=== PATIENT | female | born 1960 | race African-American/Black ===

== ENCOUNTER 2016-12-27 13:31 | Inpatient (IN) | payer OTHER ==
--- NOTE | ~2016-12-27 | CN ---
Consultation Report [facility] [address] [place]. [address] NAME: MAHAMED KIRKLAND : 64 STATUS : ADM Jerry PAT#: [id number] AGE: 56 ADM/REG DATE : 12/27/16 MR#: [id number] REPORT SERV DATE: 12/28/16 DICTATED BY: ENOCH LIN DATE: 12/28/16 REPORT STATUS : Draft TRANSCRIBED BY: MODL DATE: 12/28/16 DATE OF CONSULTATION: 12/28/2016 REASON FOR CONSULTATION: Elevated troponin. 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 with unclear goals of care at this point in time, who was brought in to [facility] yesterday with a seizure as her main complaint. The patient, as per records, had no interest in her care or answering questions, and was unaware of any of her medications. She did not respond to any questioning when the ED staff asked her for more information. Although family was present during the initial encounter per review of Dr. Wan's history and physical note, no family is currently available for me to speak with in person or on the phone. [facility] did indicate to me directly that she was under their care as recently as last month and this was stopped for unclear reasons. Unfortunately, no further history is presently available, however, I have been asked to see her for an incidentally found elevated troponin, which was checked for unclear reasons. ALLERGIES: UNABLE TO OBTAIN. FAMILY HISTORY: Unable to obtain secondary to patient not arousable (recently received benzodiazepine). SOCIAL HISTORY: Unable to obtain. REVIEW OF SYSTEMS: Unable to obtain secondary to patient's current mental status. HOME MEDICATIONS: (Patient does not know what medications she was taking, if any, however, list from EMR shows below medicines) 1. [place]. 2. Symax. 3. Compazine. 4. Zantac. 5. Senna. 6. Trazodone. PHYSICAL EXAMINATION: VITAL SIGNS: Blood pressure 163/76, pulse 77, temperature 99.7. GENERAL: Not arousable/sedated. Occasionally will open eyes with vigorous shaking, but does not gaze in my direction or acknowledge verbal calling. NEURO: As above, no obvious focal deficits, however. RESPIRATORY: Normal work of breathing. Clear to auscultation anteriorly. Consultation Report [place] [address] [place]. [address] NAME: MAHAMED KIRKLAND : 64 STATUS : ADM Jerry PAT#: [id number] AGE: 56 ADM/REG DATE : 12/27/16 MR#: [id number] REPORT SERV DATE: 12/28/16 DICTATED BY: ENOCH LIN DATE: 12/28/16 REPORT STATUS : Draft TRANSCRIBED BY: WILLIAM DATE: 12/28/16 CARDIAC: Regular rate and rhythm/tachycardiac. Normal S1, S2. ABDOMEN: Soft, nontender, nondistended. No rebound or guarding. EXTREMITIES: Cool and dry. No edema. SKIN: No obvious active rash. PERTINENT TEST FINDING: Potassium 3.5, creatinine 0.91, troponin 1.74, now 3.67. White blood cell count 9 and hemoglobin 12.3. EKG with sinus rhythm, probable anteroseptal infarct, otherwise no ischemic changes. IMPRESSION AND PLAN: Ms Kirkland is a 56-year-old woman with a history that is poorly documented of seizure disorder, not presently on medicines. Central nervous system lesions of unclear etiology status post shunting and temporal craniotomy at some point in the past and most recently under the care of [facility] as recently as last month with interruption for unclear reasons, who was brought in after having a seizure yesterday, found to have an incidental elevated troponin. RECOMMENDATIONS: I have the following recommendations by problem below: 1. Seizure disorder-per Neuro. 2. Goals of care/hospice?-this needs to be clarified. The patient is currently sedated/nonverbal and has no family that is present in person or reachable by phone at this point in time. Therefore, the upper caser has already been asked to help with her case and in clarifying her goals of care. This will be important in determining her forthcoming plan from a cardiac standpoint, if any. 3. Troponinemia-I am unsure as to the significance of this incidental positive blood test in the setting of a patient who had a seizure yesterday. As she is hemodynamically stable, for the time being, I will medically manage her with cardiac heparin drip if okay with Neurology, otherwise aspirin, statin, and beta-liliya. Further recommendations will follow, clarification of her goals of care and/or wishes if she becomes more lucid. I will possibly be helpful to also check an echocardiogram at this time. ANASTASIIA/WILLIAM Enoch Lin MD / [id number] CC: Sinan Velasquez Jr, MD
--- NOTE | ~2016-12-27 | CN ---
Consultation Report [facility] [address] [place]. [address] NAME: MAHAMED KIRKLAND : 64 STATUS : ADM Jerry PAT#: [id number] AGE: 56 ADM/REG DATE : 12/27/16 MR#: [id number] REPORT SERV DATE: 12/28/16 DICTATED BY: MEI CRAWFORD DATE: 12/28/16 REPORT STATUS : Draft TRANSCRIBED BY: MODL DATE: 12/28/16 NEUROLOGY CONSULTATION DATE OF CONSULTATION: 12/28/2016 REASON FOR CONSULTATION: Status epilepticus. HOSPITALIST: Dr. Sinan Velasquez Jr. 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 It is unknown whether these lesions are malignant; however, it is documented in the medical records that the patient has had a followup visit with [facility]. The patient is status post craniotomy and shunt placement. The patient had a status epilepticus in 2014. She was placed on IV steroids, intubated and housed in the Intensive Care Unit. After she was given IV steroids along with Keppra, her condition seemed to improve. Yesterday evening, the patient was brought to the emergency department at [facility]. Her mother was at her bedside, but was unable to provide much information. No other family member was available by phone. The patient is supposedly on Keppra, but it was not listed on her home medication list. It is also noted that she is with [facility], but it is unknown as to why. The patient had a seizure earlier yesterday, and prior to that her last seizure was approximately six months ago. Her seizure was reportedly moderate in severity with resultant expressive aphasia. According to the chart, it was documented that upon arrival she could follow some commands, was trying to open her mouth and move directionally, although she did not have a vocal response. PAST MEDICAL HISTORY: (Which is obtained from the chart) temporal lobe "lesions," irritable bowel syndrome, GERD, and left occipital stroke. PAST SURGICAL HISTORY: Status post craniotomy and status post shunt placement. HOME MEDICATION LIST: [place] 10/325 mg at bedtime, [place] 5/325 mg one in the morning, hyoscyamine 0.125 mg at bedtime, Compazine 10 mg q.6 hours p.r.n. nausea, Zantac 150 mg daily, Senokot tablet, and trazodone 50 mg at bedtime. ALLERGIES: PENICILLIN AND ADVIL. SOCIAL HISTORY: Unobtainable from the patient. FAMILY HISTORY: Unobtainable from the patient. REVIEW OF SYSTEMS: Unobtainable from the patient. PHYSICAL EXAMINATION: Consultation Report [address] [place]. [address] NAME: MAHAMED KIRKLAND : 64 STATUS : ADM Jerry PAT#: [id number] AGE: 56 ADM/REG DATE : 12/27/16 MR#: [id number] REPORT SERV DATE: 12/28/16 DICTATED BY: MEI CRAWFORD DATE: 12/28/16 REPORT STATUS : Draft TRANSCRIBED BY: WILLIAM DATE: 12/28/16 GENERAL: The patient is a 56-year-old female, who stands 5 feet 1 inch tall and weighs 190 pounds. VITAL SIGNS: She is slightly febrile with a temperature of 99.7 degrees, heart rate 70, respiratory rate 24, O2 saturations on room air 96%, and blood pressure is 163/76. NEUROLOGIC: The patient is currently having seizure activity. It is noted predominantly in the lower extremities more so on the left than the right. She is unresponsive, she will only withdraw to painful stimuli (nail bed pressure). There is no posturing just withdrawal from the painful stimuli. Pupils are 3 mm, sluggish to react. Positive dolls eye response. No nystagmus. She does have a cough and gag reflex. She is nonverbal, not following commands. She is moving all four extremities spontaneously. No tonic-clonic movement, more myoclonic type movement predominantly in the lower extremities more so on the left than the right. Upper DTRs 1+ bilaterally. Lower DTRs 2+ bilaterally. Upgoing toes bilaterally. NECK: No carotid bruits, JVD, or thyromegaly. CHEST: Few rhonchi, diminished in the bases. CARDIAC: Regular rate and rhythm. LABORATORY DATA: CBC is normal. BMP shows a sodium of 130, potassium 3.5, glucose 177, magnesium is low at 1.5. Troponins are elevated initially. Initial troponin was 1.74, 3.67, and now 7.65. Urinalysis is negative for UTI. CT of the brain shows a left craniotomy with encephalomalacia and a right shunt EEG will be done. ASSESSMENT/PLAN: 1. Status epilepticus. The patient's Keppra will be increased to 1500 mg dose now and remain on 1500 mg q.12 hours. The patient will be given Decadron 10 mg IV stat and then will be placed on 4 mg IV q.8 hours. An EEG will be done now. The patient will be placed on seizure precautions and transferred to the [facility]. The patient will also undergo an MRI of the brain with and without contrast today. 2. Elevated troponins. Questionable non-ST elevated myocardial infarction. The patient could also have rhabdomyolysis from persistent seizure activity. A CPK will be checked. 3. History of brain tumor (type unknown), right shunt placement. 4. Palliative care will be consulted. Thank you again for including us in consultation. GABE/WILLIAM Mei Crawford [facility]- / [id number] CC: Sinan Velasquez Jr, MD
--- NOTE | ~2016-12-27 | EEG ---
Electroencephalogram [facility] [address] [place]. [address] NAME: MAHAMED KIRKLAND : 64 STATUS : ADM IN PAT#: [id number] AGE: 56 ADM/REG DATE : 12/28/16 MR#: [id number] REPORT SERV DATE: 12/28/16 DICTATED BY: KINDRA WAYNE DATE: 12/28/16 REPORT STATUS : Draft TRANSCRIBED BY: MODL DATE: 12/28/16 ELECTROENCEPHALOGRAPHY REPORT INTERPRETING PHYSICIAN: Dr. Kindra Wayne. EEG NUMBER: [id number]. REASON FOR EEG: Recurrent seizures, history of brain mets, shunt status post craniotomy. DATE OF EE12/28/2016. TECHNIQUE: 23 surface electrodes, 10-20 international placement was used. Video monitoring was utilized. The patient was noted to be awake, drowsy, asleep, and restless. Prior to the EEG, the patient was noted to have tonic-colonic seizure. This silent feature of this recording is marked asymmetry of cerebral activity with presence of underlying depression and slowing of cerebral activity noted over the left hemisphere. The swallowing was involving frontotemporal, parietal, and occipital regions. The activity of the right hemisphere could be described as poorly organized, moderate voltage of 7 cycles per second located in the posterior head regions. In addition, large amount of fast activity was seen in the anterior head regions of the right hemisphere. During the sleep portion of the recording, sleep spindle like activity was seen on the right. Photic stimulation was performed. The patient became restless. Large amount of muscle artifact was seen. No paroxysmal or epileptiform activity was seen during this study. The patient's early intervention specialist showed sinus rhythm, rate of approximately 82 to 86 beats per minute. IMPRESSION: MARKEDLY ABNORMAL EEG CHARACTERIZED BY PRESENCE OF SIGNIFICANT ASYMMETRY OF CEREBRAL ACTIVITY WITH DEPRESSION AND SLOWING INVOLVING THE ENTIRE LEFT HEMISPHERE. INCREASE OF FAST ACTIVITY WAS SEEN IN RIGHT FRONTOTEMPORAL PARIETAL REGIONS. NO ACTIVE BOWEL PAROXYSMAL ACTIVITY WAS NOTED DURING THIS STUDY. THE PATIENT WAS RESTLESS AND UNCOOPERATIVE. THIS EEG SUGGESTS PRESENCE OF PHYSIOLOGICAL DISTURBANCE INVOLVING THE FUNCTION OF BOTH HEMISPHERES WITH UNDERLYING DEPRESSION AND SLOWING ON THE LEFT, MAY SUGGEST PRESENCE OF AN OLD INSULT. NO EVIDENCE OF PAROXYSMAL EPILEPTIFORM ACTIVITY WAS SEEN. HOWEVER, THIS EEG MAY REPRESENT A POSTICTAL STATE. MENTIONED ABOVE, THE PATIENT WAS NOTED TO HAVE CLINICAL SEIZURE PRIOR TO STARTING THE EEG. CLINICAL CORRELATION IS RECOMMENDED. SERGIO/WILLIAM Kindra Wayne MD / [id number] CC: Electroencephalogram [address] [place] [address] NAME: MAHAMED KIRKLAND LEONIDAS : 64 STATUS : ADM IN PAT#: [id number] AGE: 56 ADM/REG DATE : 12/28/16 MR#: [id number] REPORT SERV DATE: 12/28/16 DICTATED BY: KINDRA WAYNE DATE: 12/28/16 REPORT STATUS : Draft TRANSCRIBED BY: WILLIAM DATE: 12/28/16 Sinan Velasquez Jr, MD
--- NOTE | ~2016-12-27 | HP ---
History And Physical [facility] [id number] [place]. [address] NAME: MAHAMED KIRKLAND : 64 STATUS : ADM Jerry PAT#: [id number] AGE: 56 ADM/REG DATE : 12/27/16 MR#: [id number] REPORT SERV DATE: 12/27/16 DICTATED BY: GHASSAN WAN DATE: 12/27/16 REPORT STATUS : Draft TRANSCRIBED BY: MODL DATE: 12/27/16 DATE OF ADMISSION: 12/27/2016 CHIEF COMPLAINT: Seizures today and not quite back to baseline, and postictal. 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 Family member, mother who is at bedside, does not provide much information. Aside that, the patient had seizure today. Does not know any medications and appears fairly disinterested about answering questions, as she did not even respond questioning to ER staff when asked. The patient is currently unable to discuss due to her state. Does follow small commands with trying to open mouth and moving directional, but does not have vocal response. Her family does report that she was on hospice care with [facility], but does not report why, medications, PCP, neurologist, or able to give any details of her medical history. The patient was reported to be on Keppra, but on arrival, is not on MAR for Keppra. Seizure episode happened earlier today. The last episode appears to be greater than 6 months. Considered moderate in severity with resultant expressive aphasia. No recent nausea or vomiting, was eating well. No reported pain or discomfort in bowel or bladder. There are no worsening or relieving symptoms. Symptoms only for dysphagia and aphasia. Her additional review of systems, unobtainable secondary to mental status. PAST MEDICAL HISTORY: Obtained from the electronic records, temporal area craniotomy and seizure disorder. SURGICAL HISTORY: Noted for craniotomy. SOCIAL HISTORY: Mother lives with the patient, but unclear of additional family dynamics, and reported to have discharged to Hospice. FAMILY HISTORY: No additional seizure symptoms reported. PHYSICAL EXAMINATION: VITAL SIGNS: The patient's blood pressure 137/78, temperature 98.5, pulse of 100, respirations 23, O2 sats 97%. GENERAL: She is postictal, appears weak, does have craniotomy changes on skull with mild abrasion over the left eyebrow. HEENT: Eyes, no scleral icterus, symmetrical response. Does have poor dentition, but no vocal responses. Nares patent. RESPIRATORY: Clear to auscultation. No wheezes. CV: Regular rate. No rubs. GI: Soft, nontender. : Deferred. MUSCULOSKELETAL: Spontaneously moves all extremities, but does have deformities and bone History And Physical [address] [address] NAME: MAHAMED KIRKLAND : 64 STATUS : ADM Jerry PAT#: [id number] AGE: 56 ADM/REG DATE : 12/27/16 MR#: [id number] REPORT SERV DATE: 12/27/16 DICTATED BY: GHASSAN WAN DATE: 12/27/16 REPORT STATUS : Draft TRANSCRIBED BY: WILLIAM DATE: 12/27/16 structures in hands. SKIN: Warm and dry. HEME: No bleeding. Does have bruise at left eyebrow. NEURO: Awake, responds, interactive slightly and expressive aphasia. Does try to open mouth on command, but difficult spontaneous moving. Additional neuro exam difficult to obtain secondary to postictal-type state. PSYCH: Unable to assess. IMAGING AND LABS: CBC: H and H 11.7and 35.2, WBC of 6, platelets 237. UDS negative. Urinalysis negative. Portable chest: Shallow inspiration, no cardiopulmonary. Labs: Sodium 129, potassium 3.5, chloride 93, bicarb 24, BUN and creatinine 10 and 0.91, glucose 161, calcium 8.3. Tylenol salicylate and alcohol negative. Brain without contrast: No acute infarct or hemorrhage, status post left craniotomy with large region of encephalomalacia in the left temporal lobe, right shunt that crosses, ventricles remain mildly dilated and unchanged. ASSESSMENT/PLAN: 1. Seizure. 2. Hyponatremia. 3. History of craniotomy, with right shunt. 4. Expressive aphasia. 5. Recent hospice, questionable. PLAN: 1. For seizure, [place] in ED. She is not currently on medications, but was reported to have been on medications in the past. Prior history of stent and also prior history of status and ICU stay. We will need to closely monitor with seizure protocol. Neurology consult. Restart Keppra at this time until evaluated by Neurology and also benzodiazepines IV until full evaluation will be completed by Speech Therapy and if passes with bedside swallow, back to baseline. 2. Hyponatremia. Check osmolyte. Gentle IV fluids. Unclear etiology, but possible cause of decompensated seizure. 3. History of craniotomy, right shunt. Unchanged per CT. Reported secondary to brain cancer history, but no documentation of type or differentiation. 4. Expressive aphasia. History of similar episode requiring IV steroids in the past. We will initiate pulse-dose steroids as prior until evaluated by Neurology. 5. Recent hospice. We will need further clarification. Family member at bedside, very vague on details. We will need to have Case Management and Social Work evaluation. MERRYN/WILLIAM Ghassan Wan MD / [id number] History And Physical [address] [address] NAME: MAHAMED KIRKLAND LEONIDAS : 64 STATUS : ADM Jerry PAT#: [id number] AGE: 56 ADM/REG DATE : 12/27/16 MR#: [id number] REPORT SERV DATE: 12/27/16 DICTATED BY: GHASSAN WAN DATE: 12/27/16 REPORT STATUS : Draft TRANSCRIBED BY: MODMiley DATE: 12/27/16 CC: Sinan Velasquez Jr, MD
--- NOTE | ~2016-12-27 | CN ---
Consultation Report [facility] [address] [place]. [address] NAME: MAHAMED KIRKLAND : 64 STATUS : ADM IN PAT#: [id number] AGE: 56 ADM/REG DATE : 12/28/16 MR#: [id number] REPORT SERV DATE: 12/28/16 DICTATED BY: BREANNE LAWS DATE: 12/28/16 REPORT STATUS : Draft TRANSCRIBED BY: MODL DATE: 12/28/16 PALLIATIVE CARE CONSULTATION DATE OF CONSULTATION: 12/28/2016 Allergies are not specified as far as I can tell. HISTORY OF PRESENT ILLNESS: The patient was admitted on 12/27/2016 with seizures which she has evidently had intermittently for a number of years. She has had altered mental status and is postictal. In addition, it appears that she has an expressive aphasia of uncertain duration and severity. From what I can tell from the records several years ago after her craniotomy for metastatic breast cancer, she had a prolonged intubation and long-term support in ICU where she gradually recovered her speech. This 56-year-old lady presents now with evidence of an Ommaya reservoir for metastatic breast cancer treatment and a history of some form of hospice involvement in her care. Question as to whether they were discharged or revoked. We are asked to see her with regard to the clarifying goals of care, her overall status, and getting a better handle on exactly what her care needs are. PAST MEDICAL HISTORY: Includes expressive aphasia, postop craniotomy on the left with evidence of encephalomalacia on scan. She has a right-sided shunt. She is status post episodic seizures. SOCIAL HISTORY: Lives with her mother. Does not appear to be a substance abuser, smoker, or drinker. REVIEW OF SYSTEMS: Unable to be obtained. SIGNIFICANT LABORATORY DATA: Include a sodium of 127, K of 3.2, chloride 95, CO2 of 24, blood sugar is normal. Her magnesium is 1.5. Phosphorus is 2. Albumin 3.6. Her CPK is approximately 6000. Her CBC is unimpressive. Scans do not show any evidence of obvious hemorrhage. Evidently, an EEG was performed today the results of which are not available. PHYSICAL EXAMINATION: GENERAL: Today shows a stuporous female who has basically nonverbal. She is a little bit of lip smacking and some spontaneous shaking. There is no clear overt seizure activity noted. VITAL SIGNS: Her blood pressure is 124/60. Her temperature is 98.8 post seizure in the CDU. Pulse is 80 and regular, sinus mechanism. Respiratory rate 18 to 20, not labored. HEENT: Head is normocephalic with evidence of a previous left craniotomy and evidence of a Consultation Report [place] [address] [facility] [address] NAME: MAHAMED KIRKLAND : 64 STATUS : ADM IN PAT#: [id number] AGE: 56 ADM/REG DATE : 12/28/16 MR#: [id number] REPORT SERV DATE: 12/28/16 DICTATED BY: BREANNE LAWS DATE: 12/28/16 REPORT STATUS : Draft TRANSCRIBED BY: WILLIAM DATE: 12/28/16 right Ommaya reservoir. Her pupils are sluggish, but symmetrical at 5 mm. I did not perform doll's eyes, corneal reflexes, or other detailed neurologic exam. Please see the neurological consult for details of these aspects of the exam. Her trachea is midline. Air exchange is adequate. Dentition shows partial dentition with a coated tongue. LUNGS: She has clear upper airway congested sounds, but is exchanging air reasonably well. Her lungs show scattered rhonchi without wheezes or signs of consolidation. CHEST: Shows a left mastectomy which has been healed. HEART: Shows a regular rate and rhythm. S1 and S2 without murmurs, gallops, or extra heart sounds. Pulses 2+ upper and lower. ABDOMEN: Somewhat obese, protuberant, nontender without rebound, guarding, or tenderness. EXTREMITIES: Without clubbing or cyanosis. The overall tone appears to be somewhat decreased at this time. IMPRESSION/PLAN/DISCUSSION: This is a 56-year-old lady with a history of metastatic breast cancer evidently in hospice for some period of time. Their current status is unknown. Her current treatment regimen is unclear. She presents now with seizures which she has actually had episodically in the past, which will be addressed by Neurology. Once her overall medical situation stabilizes, hopefully, we will be able to clarify the situation a little bit better. A total of 40 minutes for this examination. GRACY/WILLAIM Breanne Laws M.D. / [id number] CC: Sinan Velasquez Jr, MD UNKNOWN
--- NOTE | ~2016-12-27 | DS ---
Discharge Summary [place] [id number] [facility] [place]. [address] NAME: MAHAMED KIRKLAND : 64 STATUS : ADM IN PAT#: [id number] AGE: 56 ADM/REG DATE : 12/28/16 MR#: [id number] REPORT SERV DATE: 01/01/17 DICTATED BY: Rosalba CHOWDHURY DATE: 01/01/17 REPORT STATUS : Draft TRANSCRIBED BY: MODL DATE: 01/01/17 ADMISSION DATE: 12/28/2016 DISCHARGE DATE: 01/01/2017 DIAGNOSES AT DISCHARGE: 1. Status epilepticus, resolved. 2. Seizure disorder. 3. Widely metastatic breast cancer. 4. Non-ST elevation myocardial infarction. 5. Metabolic encephalopathy, resolved. 6. Prior craniotomy. 7. Prior KICK BOXER shunt placement. CONSULTS: [facility]. PROCEDURES: None. BRIEF SUMMARY: A 56-year-old female patient was admitted with breakthrough seizure activity and was admitted to intermediate care and loaded on IV Keppra. The patient had an MRI of the brain that showed multiple foci of metastatic disease given her prior history of craniotomy for a single metastatic focus of breast cancer. Based on these followup images, she was started on Decadron and responded very well clinically. I met with the patient's family and they agreed to transition to [facility]. She had been a [facility] patient for quite a while, but because of a stable clinical course, they dismissed hospice and she had been doing well under the care of her daughter. However, based on the new MRI findings and her new seizure activity, they were agreeable to rejoin the [facility] for ongoing care. On 01/01/2017, the patient was stable to be discharged home with her daughter in the care of [facility]. She will continue her home medicines with the addition of Keppra 1500 mg b.i.d. p.o. and Decadron 4 mg three times a day p.o. Further recommendations for treatment pending ongoing evaluation and management by [facility]. [facility] Rosalba Chowdhury M.D. / [id number] CC: Bree Fong M.D.
[2016-12-27 12:23] LABS: A/G RATIO 0.9 (0.7-1.9); ALBUMIN 3.5 G/DL (3.5-5.0); ALKALINE PHOSPHATASE 117 U/L (45-117); BUN (BLOOD UREA NITROGEN) 10 MG/DL (6-23); CALCIUM, SERUM 8.3 MG/DL (8.5-10.4); CHLORIDE, SERUM 93 MMOL/L (96-112); CO2 (CARBON DIOXIDE) 24 MMOL/L (24-34); CREATININE 0.92 MG/DL (0.55-1.02); GFR AFRICAN AMERICAN 82 ML/MIN (>=60); GFR NON AFRICAN AMERICAN 71 ML/MIN (>=60); GLOBULIN 4.1 G/DL (2.5-4.1); GLUCOSE, SERUM 161 MG/DL (60-99); POTASSIUM, SERUM 3.5 MMOL/L (3.5-5.3); SGOT(AST) 22 U/L (5-40); SGPT(ALT) 19 U/L (5-65); SODIUM, SERUM 129 MMOL/L (135-148); TOTAL BILIRUBIN 0.6 MG/DL (0-1.2); TOTAL PROTEIN 7.6 G/DL (6.0-8.5)
[2016-12-27 12:24] LABS: ACETAMINOPHEN LEVEL (TYLENOL) < 2.0 MCG/ML (10.0-20.0); ALCOHOL < 10 MG/DL (0); SALICYLATE < 1.7 MG/DL (-)
[~2016-12-27 13:31] MED LIST: *UNABLE2; ASA5GR PO; KEPPRA500 PO; METHOC500B PO; NEUR100 PO; NORCO1 TA1 PO; P10 PO; VENTOLIN HFA INH; ZANAFLEX2 MG PO
[2016-12-27 13:59] LABS: ASCORBIC ACID (UR NOT ORDER) NEG (NEG); BILIRUBIN, URINE NEGATIVE (NEG); ER URINALYSIS TAT 0 Hrs 07 Mins; KETONE, URINE NEGATIVE (NEG); LEUKOCYTE ESTERASE(NOT OR NEG (NEG); NITRITE (URINE) NEG (NEG); WBC (NOT ORDERED) (RFLEX) < 1 (0-5)
[2016-12-27 14:11] LABS: AMPHETAMINES (NOT ORD) NEG (NEG); BARBITURATES (NOT ORDERED NEG (NEG); BENZODIAZEPINES (NOT ORD) NEG (NEG); CANNABINOIDS (THC) NEG (NEG); COCAINE (NOT ORDERED) NEG (NEG); OPIATES NEG (NEG); PHENCYCLIDINE(PCP) NEG (NEG); TRICYCLICS NEG (NEG)
[2016-12-27 14:15] LABS: BASOPHILS 0.2 %; BASOPHILS ABSOLUTE 0.01 10/3/uL (0.0-0.16); EOSINOPHILS 0.2 %; EOSINOPHILS ABSOLUTE 0.01 10/3/uL (0.0-0.53); HEMATOCRIT 35.2 % (36.0-48.0); HEMOGLOBIN 11.7 g/dL (12.0-16.0); IMMATURE GRANULOCYTES 0.2 %; IMMATURE GRANULOCYTES ABSOLUTE 0.01 10/3/uL (0.0-0.11); LYMPHOCYTES 13.7 %; LYMPHOCYTES ABSOLUTE 0.83 10/3/uL (0.67-4.30); MEAN CORPUS HGB CONC 33.2 g/dL (32.0-36.0); MEAN CORPUSCULAR HEMOGLOB 27.6 pg (26.0-34.0); MONOCYTES 7.3 %; MONOCYTES ABSOLUTE 0.44 10/3/uL (0.21-1.20); NEUTROPHILS 78.4 %; NEUTROPHILS ABSOLUTE 4.74 10/3/uL (2.02-8.40); PLATELET COUNT 237 10/3/uL (150-400); RBC DISTRIBUTION WIDTH 12.7 % (12.0-16.0); RED CELL COUNT 4.24 10/6/uL (4.0-5.6)
[2016-12-27 14:18] LABS: ER CBC TAT 0 Hrs 06 MinsNMP; MANUAL DIFF NO %
[2016-12-27] MEDS ORDERED: TRAZ50 PO (15:04)
[2016-12-27] MEDS ORDERED: SYMAX-SL0.125 MG SL (15:04)
[2016-12-27] MEDS ORDERED: SENTAB PO (15:05)
[2016-12-27] MEDS ORDERED: ZANTAC 150 PO (15:07)
[2016-12-27] MEDS ORDERED: NORCO1 TA1 PO (15:08)
[2016-12-27] MEDS ORDERED: NORCO1 TAB PO (15:08)
[2016-12-27] MEDS ORDERED: COMP10B PO (15:09)
[2016-12-27 20:37] LABS: BUN (BLOOD UREA NITROGEN) 8 MG/DL (6-23); CALCIUM, SERUM 8.6 MG/DL (8.5-10.4); CHLORIDE, SERUM 93 MMOL/L (96-112); CO2 (CARBON DIOXIDE) 25 MMOL/L (24-34); CREATININE 0.83 MG/DL (0.55-1.02); GFR AFRICAN AMERICAN 93 ML/MIN (>=60); GFR NON AFRICAN AMERICAN 80 ML/MIN (>=60); GLUCOSE, SERUM 132 MG/DL (60-99); POTASSIUM, SERUM 3.5 MMOL/L (3.5-5.3); SODIUM, SERUM 129 MMOL/L (135-148)
[2016-12-27 20:38] LABS: TROPONIN I 1.74 NG/ML (<0.05)
[2016-12-28 02:18] LABS: A/G RATIO 0.8 (0.7-1.9); ALBUMIN 3.6 G/DL (3.5-5.0); ALKALINE PHOSPHATASE 127 U/L (45-117); BUN (BLOOD UREA NITROGEN) 8 MG/DL (6-23); CALCIUM, SERUM 8.5 MG/DL (8.5-10.4); CHLORIDE, SERUM 92 MMOL/L (96-112); CO2 (CARBON DIOXIDE) 25 MMOL/L (24-34); CREATININE 0.91 MG/DL (0.55-1.02); GFR AFRICAN AMERICAN 83 ML/MIN (>=60); GFR NON AFRICAN AMERICAN 72 ML/MIN (>=60); GLOBULIN 4.6 G/DL (2.5-4.1); POTASSIUM, SERUM 3.5 MMOL/L (3.5-5.3); SGOT(AST) 78 U/L (5-40); SGPT(ALT) 32 U/L (5-65); SODIUM, SERUM 130 MMOL/L (135-148); TOTAL BILIRUBIN 0.6 MG/DL (0-1.2); TOTAL PROTEIN 8.2 G/DL (6.0-8.5)
[2016-12-28 02:19] LABS: GLUCOSE, SERUM 177 MG/DL (60-99); TROPONIN I 3.67 NG/ML (<0.05)
[2016-12-28 05:42] LABS: BASOPHILS 0 %; EOSINOPHILS 0 %; HEMATOCRIT 35.7 % (36.0-48.0); HEMOGLOBIN 12.3 g/dL (12.0-16.0); IMMATURE GRANULOCYTES 0.3 %; IMMATURE GRANULOCYTES ABSOLUTE 0.03 10/3/uL (0.0-0.11); LYMPHOCYTES 8.2 %; LYMPHOCYTES ABSOLUTE 0.74 10/3/uL (0.67-4.30); MEAN CORPUS HGB CONC 34.5 g/dL (32.0-36.0); MEAN CORPUSCULAR HEMOGLOB 28.2 pg (26.0-34.0); MEAN CORPUSCULAR VOLUME 81.9 fL (80-100); MEAN PLATELET VOLUME 9.7 fL (9.2-13.0); MONOCYTES ABSOLUTE 0.09 10/3/uL (0.21-1.20); NEUTROPHILS 90.5 %; NEUTROPHILS ABSOLUTE 8.11 10/3/uL (2.02-8.40); PLATELET COUNT 274 10/3/uL (150-400); RBC DISTRIBUTION WIDTH 12.7 % (12.0-16.0); RED CELL COUNT 4.36 10/6/uL (4.0-5.6)
[2016-12-28 05:52] LABS: MANUAL DIFF NO %
[2016-12-28 10:14] LABS: BUN (BLOOD UREA NITROGEN) 8 MG/DL (6-23); CALCIUM, SERUM 8.3 MG/DL (8.5-10.4); CHLORIDE, SERUM 93 MMOL/L (96-112); CO2 (CARBON DIOXIDE) 24 MMOL/L (24-34); CREATININE 0.84 MG/DL (0.55-1.02); GFR AFRICAN AMERICAN 91 ML/MIN (>=60); GFR NON AFRICAN AMERICAN 79 ML/MIN (>=60); GLUCOSE, SERUM 172 MG/DL (60-99); POTASSIUM, SERUM 3.2 MMOL/L (3.5-5.3); SODIUM, SERUM 127 MMOL/L (135-148); TROPONIN I 7.65 NG/ML (<0.05)
[2016-12-28 12:05] LABS: INSTRUMENT SERIAL # 8083; PCO2 (CO2 TENSION) 28 MMHG (35-45); PO2 (O2 TENSION) 74 MMHG (79-93); pH 7.49 (7.37-7.43)
[2016-12-28 12:06] LABS: ALLENS TEST Pos; BE (BASE EXCESS) -1.2 MEQ/L (0 +/- 2.5); CARBOXYHEMOGLOBIN 0.7 % (0-3); HCO3 (ACTUAL BICARBONATE) 20.8 MEQ/L (23-27); METHEMOGLOBIN 0.3 % (0-3); O2 CONTENT 18.6 VOL% (18-24); OPERATOR ID 35798; SAMPLE Arterial
[2016-12-28 12:54] LABS: CKMB INDEX (NOT ORD) 0.9; CPK 2690 U/L (0-200)
[2016-12-28 13:10] LABS: GLYCOHEMOGLOBIN (HbA1c) 5.8 % (4.7-6.1)
[2016-12-28 13:32] LABS: CHOL/HDL RATIO(NOT ORDER) 2.7 (0-5); CK-MB 23.5 NG/ML; CKMB INDEX (NOT ORD) 0.4; FOLATE 23.5 NG/ML (>5.2); FREE T4 1.05 NG/DL (0.76-1.46); PROLACTIN 13.1 NG/ML; TROPONIN I 7.28 NG/ML (<0.05); ULTRASENSITIVE TSH 0.458 MCIU/ML (0.358-3.740)
[2016-12-28 13:54] LABS: PROCALCITONIN 0.56 ng/mL (<0.5)
[2016-12-29 05:13] LABS: BASOPHILS 0.1 %; BASOPHILS ABSOLUTE 0.01 10/3/uL (0.0-0.16); EOSINOPHILS 0 %; HEMATOCRIT 37.6 % (36.0-48.0); IMMATURE GRANULOCYTES 0.3 %; IMMATURE GRANULOCYTES ABSOLUTE 0.05 10/3/uL (0.0-0.11); LYMPHOCYTES 4.3 %; LYMPHOCYTES ABSOLUTE 0.65 10/3/uL (0.67-4.30); MEAN CORPUS HGB CONC 34.6 g/dL (32.0-36.0); MEAN CORPUSCULAR HEMOGLOB 28.4 pg (26.0-34.0); MEAN CORPUSCULAR VOLUME 82.3 fL (80-100); MEAN PLATELET VOLUME 9.8 fL (9.2-13.0); MONOCYTES 3.3 %; NEUTROPHILS ABSOLUTE 13.74 10/3/uL (2.02-8.40); PLATELET COUNT 248 10/3/uL (150-400); RED CELL COUNT 4.57 10/6/uL (4.0-5.6)
[2016-12-29 05:17] LABS: MANUAL DIFF NO %
[2016-12-29 05:25] LABS: A/G RATIO 0.7 (0.7-1.9); ALBUMIN 3.1 G/DL (3.5-5.0); BUN (BLOOD UREA NITROGEN) 11 MG/DL (6-23); CALCIUM, SERUM 8.1 MG/DL (8.5-10.4); CK-MB 7.7 NG/ML; CO2 (CARBON DIOXIDE) 21 MMOL/L (24-34); CPK 6160 U/L (0-200); CREATININE 0.89 MG/DL (0.55-1.02); GFR AFRICAN AMERICAN 85 ML/MIN (>=60); GFR NON AFRICAN AMERICAN 73 ML/MIN (>=60); GLOBULIN 4.3 G/DL (2.5-4.1); GLUCOSE, SERUM 153 MG/DL (60-99); POTASSIUM, SERUM 3.8 MMOL/L (3.5-5.3); SGOT(AST) 100 U/L (5-40); SGPT(ALT) 43 U/L (5-65); TOTAL BILIRUBIN 0.5 MG/DL (0-1.2); TOTAL PROTEIN 7.4 G/DL (6.0-8.5)
[2016-12-29 05:26] LABS: ALKALINE PHOSPHATASE 98 U/L (45-117); CHLORIDE, SERUM 103 MMOL/L (96-112); CKMB INDEX (NOT ORD) 0.1; SODIUM, SERUM 139 MMOL/L (135-148); TROPONIN I 5.18 NG/ML (<0.05)
[2016-12-30 06:59] LABS: BASOPHILS 0 %; EOSINOPHILS 0 %; HEMOGLOBIN 12.2 g/dL (12.0-16.0); IMMATURE GRANULOCYTES 0.3 %; IMMATURE GRANULOCYTES ABSOLUTE 0.04 10/3/uL (0.0-0.11); LYMPHOCYTES 6.7 %; LYMPHOCYTES ABSOLUTE 0.78 10/3/uL (0.67-4.30); MEAN CORPUS HGB CONC 33.9 g/dL (32.0-36.0); MEAN CORPUSCULAR HEMOGLOB 28.7 pg (26.0-34.0); MEAN CORPUSCULAR VOLUME 84.7 fL (80-100); MEAN PLATELET VOLUME 10.4 fL (9.2-13.0); MONOCYTES 3.2 %; MONOCYTES ABSOLUTE 0.38 10/3/uL (0.21-1.20); NEUTROPHILS 89.8 %; PLATELET COUNT 241 10/3/uL (150-400); RBC DISTRIBUTION WIDTH 13.4 % (12.0-16.0); RED CELL COUNT 4.25 10/6/uL (4.0-5.6); WHITE BLOOD CELLS 11.7 10/3/uL (4.5-10.5)
[2016-12-30 07:01] LABS: A/G RATIO 0.7 (0.7-1.9); ALBUMIN 2.8 G/DL (3.5-5.0); ALKALINE PHOSPHATASE 87 U/L (45-117); BUN (BLOOD UREA NITROGEN) 14 MG/DL (6-23); CALCIUM, SERUM 8.3 MG/DL (8.5-10.4); CHLORIDE, SERUM 109 MMOL/L (96-112); CO2 (CARBON DIOXIDE) 23 MMOL/L (24-34); CREATININE 0.88 MG/DL (0.55-1.02); GFR AFRICAN AMERICAN 86 ML/MIN (>=60); GFR NON AFRICAN AMERICAN 74 ML/MIN (>=60); GLUCOSE, SERUM 138 MG/DL (60-99); POTASSIUM, SERUM 3.8 MMOL/L (3.5-5.3); SGOT(AST) 61 U/L (5-40); SGPT(ALT) 48 U/L (5-65); SODIUM, SERUM 142 MMOL/L (135-148); TOTAL BILIRUBIN 0.3 MG/DL (0-1.2); TOTAL PROTEIN 6.8 G/DL (6.0-8.5)
[2016-12-30 07:02] LABS: TROPONIN I 1.78 NG/ML (<0.05)
[2016-12-30 07:18] LABS: MANUAL DIFF NO %
[2016-12-31 06:06] LABS: BASOPHILS 0 %; EOSINOPHILS 0 %; HEMATOCRIT 36.5 % (36.0-48.0); HEMOGLOBIN 12.2 g/dL (12.0-16.0); IMMATURE GRANULOCYTES 0.9 %; LYMPHOCYTES 9.7 %; MEAN CORPUS HGB CONC 33.4 g/dL (32.0-36.0); MEAN CORPUSCULAR HEMOGLOB 28.2 pg (26.0-34.0); MEAN CORPUSCULAR VOLUME 84.5 fL (80-100); MONOCYTES 7.4 %; MONOCYTES ABSOLUTE 0.84 10/3/uL (0.21-1.20); NEUTROPHILS ABSOLUTE 9.29 10/3/uL (2.02-8.40); PLATELET COUNT 242 10/3/uL (150-400); RBC DISTRIBUTION WIDTH 13.3 % (12.0-16.0); RED CELL COUNT 4.32 10/6/uL (4.0-5.6); WHITE BLOOD CELLS 11.3 10/3/uL (4.5-10.5)
[2016-12-31 06:07] LABS: MANUAL DIFF NO %
[2016-12-31 06:25] LABS: BUN (BLOOD UREA NITROGEN) 17 MG/DL (6-23); CALCIUM, SERUM 8.5 MG/DL (8.5-10.4); CHLORIDE, SERUM 107 MMOL/L (96-112); CO2 (CARBON DIOXIDE) 24 MMOL/L (24-34); CREATININE 0.94 MG/DL (0.55-1.02); GFR AFRICAN AMERICAN 80 ML/MIN (>=60); GFR NON AFRICAN AMERICAN 69 ML/MIN (>=60); GLUCOSE, SERUM 113 MG/DL (60-99); POTASSIUM, SERUM 3.5 MMOL/L (3.5-5.3); SODIUM, SERUM 143 MMOL/L (135-148)
[2016-12-31 06:26] LABS: PHOSPHORUS, SERUM 2.7 MG/DL (2.5-4.5)
[2017-01-01 04:40] LABS: BASOPHILS 0.1 %; BASOPHILS ABSOLUTE 0.01 10/3/uL (0.0-0.16); EOSINOPHILS 0 %; HEMATOCRIT 37.7 % (36.0-48.0); HEMOGLOBIN 12.8 g/dL (12.0-16.0); IMMATURE GRANULOCYTES 0.8 %; IMMATURE GRANULOCYTES ABSOLUTE 0.09 10/3/uL (0.0-0.11); LYMPHOCYTES 12.7 %; LYMPHOCYTES ABSOLUTE 1.48 10/3/uL (0.67-4.30); MEAN CORPUSCULAR HEMOGLOB 28.8 pg (26.0-34.0); MEAN CORPUSCULAR VOLUME 84.7 fL (80-100); MEAN PLATELET VOLUME 9.9 fL (9.2-13.0); MONOCYTES 5.3 %; MONOCYTES ABSOLUTE 0.62 10/3/uL (0.21-1.20); NEUTROPHILS 81.1 %; NEUTROPHILS ABSOLUTE 9.46 10/3/uL (2.02-8.40); PLATELET COUNT 224 10/3/uL (150-400); RBC DISTRIBUTION WIDTH 12.9 % (12.0-16.0); RED CELL COUNT 4.45 10/6/uL (4.0-5.6); WHITE BLOOD CELLS 11.7 10/3/uL (4.5-10.5)
[2017-01-01 04:41] LABS: MANUAL DIFF NO %
[2017-01-01 04:53] LABS: BUN (BLOOD UREA NITROGEN) 14 MG/DL (6-23); CALCIUM, SERUM 8.8 MG/DL (8.5-10.4); CHLORIDE, SERUM 107 MMOL/L (96-112); CO2 (CARBON DIOXIDE) 25 MMOL/L (24-34); CREATININE 0.84 MG/DL (0.55-1.02); GFR AFRICAN AMERICAN 91 ML/MIN (>=60); GFR NON AFRICAN AMERICAN 79 ML/MIN (>=60); GLUCOSE, SERUM 130 MG/DL (60-99); POTASSIUM, SERUM 3.6 MMOL/L (3.5-5.3); SODIUM, SERUM 142 MMOL/L (135-148)
== END 2017-01-01 18:44 | disposition hospice, home (50) | DRG 100 ==
LOC: ER 13:31 → CDU1 15:03 → CDU2 16:32 → IMCU 12-28 14:00 → 4SO 01-01 12:33 → SDC/OF 01-01 13:01 → 4SO 01-01 13:02
PROVIDERS: Internal Medicine; Nurse Practitioner; Student in an Organized Health Care Education/Training Program
DX: G40.901 Epilepsy, unspecified, not intractable, with status epilepticus (principal); I21.4 Non-ST elevation (NSTEMI) myocardial infarction; G93.41 Metabolic encephalopathy; R47.01 Aphasia; E87.1 Hypo-osmolality and hyponatremia; M62.82 Rhabdomyolysis; C50.919 Malignant neoplasm of unspecified site of unspecified female breast; Z98.2 Presence of cerebrospinal fluid drainage device; Z85.841 Personal history of malignant neoplasm of brain; Z85.3 Personal history of malignant neoplasm of breast; Z90.12 Acquired absence of left breast and nipple; K21.9 Gastro-esophageal reflux disease without esophagitis; K58.9 Irritable bowel syndrome, unspecified; Z86.73 Personal history of transient ischemic attack (TIA), and cerebral infarction without residual deficits; Z79.891 Long term (current) use of opiate analgesic; Z88.0 Allergy status to penicillin; Z88.8 Allergy status to other drugs, medicaments and biological substances; E66.9 Obesity, unspecified; Z68.35 Body mass index [BMI] 35.0-35.9, adult; Z51.5 Encounter for palliative care
CPT/HCPCS: 36600; 70450; 70553; 71010; 80048; 80053; 80061; 80305; 80307; 81001; 82140; 82306; 82533; 82550; 82553; 82607; 82746; 82805; 83036; 83735; 83930; 84100; 84145; 84146; 84439; 84443; 84484; 85025; 85730; 87641; 93005; 93306; 95816; 96365; 99285; A9270-GY; A9577; J1953; J2930

== ENCOUNTER 2017-02-19 01:53 | Emergency (ER) | payer OTHER ==
[~2017-02-19 01:53] MED LIST changes: +COMP10B PO; +NORCO1 TAB PO; +SENTAB PO; +SYMAX-SL0.125 MG SL; +TRAZ50 PO; +ZANTAC 150 PO
[2017-02-19 02:04] LABS: BASOPHILS 0.1 %; BASOPHILS ABSOLUTE 0.01 10/3/uL (0.0-0.16); EOSINOPHILS 0.1 %; EOSINOPHILS ABSOLUTE 0.01 10/3/uL (0.0-0.53); ER CBC TAT 0 Hrs 05 Mins; HEMATOCRIT 39.6 % (36.0-48.0); IMMATURE GRANULOCYTES 0.2 %; IMMATURE GRANULOCYTES ABSOLUTE 0.02 10/3/uL (0.0-0.11); LYMPHOCYTES 23.3 %; LYMPHOCYTES ABSOLUTE 2.15 10/3/uL (0.67-4.30); MANUAL DIFF NO %; MEAN CORPUS HGB CONC 32.8 g/dL (32.0-36.0); MEAN CORPUSCULAR HEMOGLOB 29.4 pg (26.0-34.0); MEAN CORPUSCULAR VOLUME 89.6 fL (80-100); MEAN PLATELET VOLUME 8.8 fL (9.2-13.0); MONOCYTES 6.2 %; MONOCYTES ABSOLUTE 0.57 10/3/uL (0.21-1.20); NEUTROPHILS 70.1 %; NEUTROPHILS ABSOLUTE 6.48 10/3/uL (2.02-8.40); PLATELET COUNT 159 10/3/uL (150-400); RBC DISTRIBUTION WIDTH 14.3 % (12.0-16.0); RED CELL COUNT 4.42 10/6/uL (4.0-5.6); WHITE BLOOD CELLS 9.2 10/3/uL (4.5-10.5)
[2017-02-19 02:18] LABS: ALKALINE PHOSPHATASE 94 U/L (45-117); CALCIUM, SERUM 9.3 MG/DL (8.5-10.4); CHLORIDE, SERUM 109 MMOL/L (96-112); CO2 (CARBON DIOXIDE) 24 MMOL/L (24-34); CREATININE 1.01 MG/DL (0.55-1.02); GFR AFRICAN AMERICAN 73 ML/MIN (>=60); GFR NON AFRICAN AMERICAN 63 ML/MIN (>=60); GLUCOSE, SERUM 120 MG/DL (60-99); POTASSIUM, SERUM 3.5 MMOL/L (3.5-5.3); SGOT(AST) 15 U/L (5-40); SGPT(ALT) 24 U/L (5-65); SODIUM, SERUM 144 MMOL/L (135-148); TOTAL BILIRUBIN 0.5 MG/DL (0-1.2); TOTAL PROTEIN 7.1 G/DL (6.0-8.5)
[2017-02-19 02:19] LABS: ACETAMINOPHEN LEVEL (TYLENOL) < 2.0 MCG/ML (10.0-20.0); ALBUMIN 3.6 G/DL (3.5-5.0); ALCOHOL < 10 MG/DL (0); BUN (BLOOD UREA NITROGEN) 20 MG/DL (6-23); GLOBULIN 3.5 G/DL (2.5-4.1); SALICYLATE < 1.7 MG/DL (-)
[2017-02-19 02:25] LABS: ASCORBIC ACID (UR NOT ORDER) NEG (NEG); BILIRUBIN, URINE NEGATIVE (NEG); KETONE, URINE NEGATIVE (NEG); LEUKOCYTE ESTERASE(NOT OR NEG (NEG); NITRITE (URINE) NEG (NEG); WBC (NOT ORDERED) (RFLEX) 1 (0-5)
[2017-02-19 02:36] LABS: AMPHETAMINES (NOT ORD) NEG (NEG); BARBITURATES (NOT ORDERED NEG (NEG); BENZODIAZEPINES (NOT ORD) NEG (NEG); CANNABINOIDS (THC) NEG (NEG); COCAINE (NOT ORDERED) NEG (NEG); OPIATES POS (NEG); PHENCYCLIDINE(PCP) NEG (NEG); TRICYCLICS NEG (NEG)
[2017-02-20] MEDS ORDERED: ACETIC ACID OT (08:31)
[2017-02-20] MEDS ORDERED: NORCO1 TAB PO ×2 (08:32→19:04)
[2017-02-20] MEDS ORDERED: *UNABLE1 (08:32)
[2017-02-20] MEDS ORDERED: CIP5 PO (08:32)
[2017-02-20] MEDS ORDERED: [UNRECOGNIZED DRUG - CODE] IV (19:04)
[2017-02-20] MEDS ORDERED: SYMAX-SL0.125 MG PO (19:05)
[2017-02-20] MEDS ORDERED: KEPPRA1000 MG PO (19:05)
[2017-02-20] MEDS ORDERED: ZANTAC150 MG PO (19:06)
[2017-02-20] MEDS ORDERED: COMP10B PO (19:06)
[2017-02-20] MEDS ORDERED: DEX4 PO (19:07)
[2017-02-20] MEDS ORDERED: SENTAB PO (19:07)
[2017-02-20] MEDS ORDERED: TRAZ50 PO (19:07)
== END 2017-02-21 14:20 | disposition home or self-care (01) ==
LOC: ER 01:53
PROVIDERS: Nurse Practitioner Acute Care
DX: F03.90 Unspecified dementia, unspecified severity, without behavioral disturbance, psychotic disturbance, mood disturbance, and anxiety (principal); R45.1 Restlessness and agitation; I25.2 Old myocardial infarction; K21.9 Gastro-esophageal reflux disease without esophagitis; R56.9 Unspecified convulsions; Z86.73 Personal history of transient ischemic attack (TIA), and cerebral infarction without residual deficits
CPT/HCPCS: 71010; 80053; 80305; 80307; 81001; 85025; 96372; 96374; 99285; A9270-GY; J3486